=== PATIENT | female | born 1985 | race African-American/Black ===

== ENCOUNTER 2018-10-16 11:15 | Emergency (ER) | payer OTHER ==
[~2018-10-16] VITALS: Ht 157.5 cm; Wt 55.8 kg
[2018-10-16 11:28] VITALS: BP 118/77
--- NOTE | 2018-10-16 12:54 | NUR ---
Patient discharged to home in stable condition. Written and verbal after care instructions given. Patient verbalizes understanding of instruction.
== END 2018-10-16 12:55 | disposition home or self-care (01) ==
LOC: ER 11:21
DX: H10.89 Other conjunctivitis (principal)